=== PATIENT | female | born 1995 | race Caucasian/White ===

== ENCOUNTER 2018-11-12 02:58 | Inpatient (IN) | payer MEDICAID ==
[2018-11-12 04:12] LABS: ABSOLUTE BASOPHILS # (AUTO) 0.1 10^3/uL (0.0-0.2); ABSOLUTE EOSINOPHILS # (AUTO) 0.2 10^3/uL (0.0-0.6); ABSOLUTE LYMPHOCYTES (AUTO) 2.8 10^3/uL (0.5-4.7); ABSOLUTE MONOCYTES (AUTO) 0.7 10^3/uL (0.1-1.4); ABSOLUTE NEUT (AUTO) 10.6 10^3/uL (1.7-8.2); BASOPHILS % (AUTO) 0.4 % (0-2); EOSINOPHILS % (AUTO) 1.1 % (0-6); HEMATOCRIT 35.4 % (36.0-47.0); HEMOGLOBIN 11.7 g/dL (12.0-15.5); LYMPHOCYTES % (AUTO) 19.8 % (13-45); MEAN CORPUSCULAR HEMOGLOBIN 26.5 pg (27.0-33.4); MEAN CORPUSCULAR VOLUME 80 fl (80-97); MONOCYTES % (AUTO) 4.9 % (3-13); PLATELET COUNT 408 10^3/uL (150-450); RED BLOOD COUNT 4.41 10^6/uL (3.72-5.28); RED CELL DISTRIBUTION WIDTH 18.3 % (11.5-14.0); SEGMENTED NEUTROPHILS % (AUTO) 73.8 % (42-78); TOTAL CELLS COUNTED % (AUTO) 100 %; WHITE BLOOD COUNT 14.4 10^3/uL (4.0-10.5)
[2018-11-12] MEDS ORDERED: ACETAMINOPHEN 325 MG TABLET ONE (04:38)
[2018-11-12] MEDS ORDERED: PROMETHAZINE HCL INJ 25 MG/1 ML VIAL ONE ×2 (04:38→05:06)
[2018-11-12 06:13] LABS: ALANINE AMINOTRANSFERASE 15 U/L (9-52); ALBUMIN 3.9 g/dL (3.5-5.0); ALKALINE PHOSPHATASE 69 U/L (38-126); ANION GAP 8 (5-19); ASPARTATE AMINO TRANSFERASE 59 U/L (14-36); BILIRUBIN,DIRECT 0.3 mg/dL (0.0-0.4); BILIRUBIN,TOTAL 0.3 mg/dL (0.2-1.3); BLOOD UREA NITROGEN 26 mg/dL (7-20); CALCIUM 9.4 mg/dL (8.4-10.2); CARBON DIOXIDE 28 mmol/L (22-30); CHLORIDE 103 mmol/L (98-107); GLUCOSE 110 mg/dL (75-110); POTASSIUM 4.3 mmol/L (3.6-5.0); SODIUM 138.5 mmol/L (137-145); TOTAL PROTEIN 6.4 g/dL (6.3-8.2)
[2018-11-12 06:23] LABS: AMORPHOUS SEDIMENT,URINE TRACE /HPF; APPEARANCE,URINE CLOUDY; BILIRUBIN,URINE NEGATIVE (NEGATIVE); COLOR,URINE YELLOW; GLUCOSE, URINE NEGATIVE (NEGATIVE); KETONES,URINE NEGATIVE (NEGATIVE); LEUKOCYTE ESTERASE,URINE NEGATIVE (NEGATIVE); NITRITE,URINE NEGATIVE (NEGATIVE); PROTEIN,URINE NEGATIVE (NEGATIVE); URINE SPECIFIC GRAVITY 1.023; UROBILINOGEN,URINE NEGATIVE mg/dL (<2.0)
--- NOTE | 2018-11-12 06:41 | ER Document Report ---
ED General - General Chief Complaint: Abdominal Pain Stated Complaint: ABDOMINAL PAIN Time Seen by Provider: 11/12/18 03:57 Primary Care Provider: BERNARD JAMES MD [Primary Care Provider] - Follow up as needed Notes: Patient is a 23-year-old female who presents to the emergency department with a chief complaint of abdominal pain. She states that her abdominal pain is primarily in her mid upper abdomen. Her pain started 2 hours prior to arrival to the emergency department. She had tried multiple positions to get comfortable, but anyway she laid, she could not get comfortable. she describes her pain as a sharp, kicking pain. She does have a history of chronic pancreatitis, pacemaker placement, Guillain-Stout, cholecystitis. She was diagnosed with Guillain-Stout a about 8-9 months ago and was at [facility] for management. She denies any diarrhea or vomiting, but does complain of some nausea. She had a bowel movement today, which was normal. TRAVEL OUTSIDE OF THE [place] IN LAST 30 DAYS: No - Related Data Allergies/Adverse Reactions: Penicillins Allergy (Verified 11/12/18 03:29) Sulfa (Sulfonamide Antibiotics) Allergy (Verified 11/12/18 03:29) morphine Adverse Reaction (Verified 11/12/18 03:29) Past Medical History - Social History Smoking Status: Never Smoker Chew tobacco use (# tins/day): No Frequency of alcohol use: None Drug Abuse: None Family History: Reviewed & Not Pertinent Patient has suicidal ideation: No Patient has homicidal ideation: No Renal/ Medical History: Denies: Hx Peritoneal Dialysis Psychiatric Medical History: Reports: Hx Bipolar Disorder Past Surgical History: Reports: Hx Appendectomy, Hx Cholecystectomy Review of Systems - Review of Systems Notes: REVIEW OF SYSTEMS: CONSTITUTIONAL : Denies recent illness. Denies recent unintentional weight loss. Denies fever, chills, or sweats. EENT: Denies eye, ear, throat, or mouth pain, discharge, or symptoms. Denies nasal or sinus congestion. CARDIOVASCULAR: Denies chest pain. RESPIRATORY: Denies shortness of breath, cough, congestion, difficulty clovis athing, or wheezing. GASTROINTESTINAL: See HPI GENITOURINARY: Denies difficulty urinating, burning, blood in urine, urgency or frequency. MUSCULOSKELETAL: Denies neck and back pain. Denies joint pain or swelling. SKIN: Denies rash, itchiness, or lesions HEMATOLOGIC : Denies easy bruising or bleeding. LYMPHATIC: Denies swollen, painful, enlarged glands. NEUROLOGICAL: Denies no numbness or tingling denies weakness. Denies headache. Denies altered mental status. Denies alteration in speech. PSYCHIATRIC: Denies stress, anxiety, alteration in sleep patterns, or depression. All other systems reviewed and negative. Physical Exam - Vital signs Vitals: Temp Pulse Resp BP Pulse Ox 97.9 F 97 19 93/47 L 95 11/12/18 02:59 11/12/18 02:59 11/12/18 02:59 11/12/18 02:59 11/12/18 02:59 - Notes Notes: PHYSICAL EXAMINATION: GENERAL: Appears well, healthy, well-nourished, no acute distress. HEAD: Normocephalic, atraumatic. EYES: PERRL, conjunctiva normal, all extraocular movements intact, sclera nonicteric ENT: Moist mucous membranes. NECK: Supple, no noticeable swelling, redness, rash. Normal range of motion. LUNGS: Equal breath sounds bilaterally and clear to auscultation. No wheezes rales or rhonchi. CARDIOVASCULAR: S1-S2, regular rate, regular rhythm. Radial pulses 2+, normal. ABDOMEN: Normoactive bowel sounds. Soft, tender mid upper abdomen, no guarding, no rebound tenderness, and no masses palpated. EXTREMITIES: Flaccid. NEUROLOGICAL: Flaccid extremities due to Guyon Stout PSYCH: Normal mood, normal affect. SKIN: Warm, diaphoretic. No rash, lesions, ulcerations noted. Normal skin turgor. Course - Re-evaluation Re-evalutation: 11/12/18 04:20 Since the patient has a history of chronic pancreatitis, and she has pain in her epigastric area, a lipase level will be drawn. She also had basic labs done. 11/12/18 06:15 The patient's lipase level is greater than 5000. I asked the patient if she knew what her normal lipase level was, but she could not recall. Unfortunately there are no previous labs from this hospital. Patient stated, "the last time I was admitted to [facility], my lipase level was greater than 5000." 11/12/18 07:[address] of the abdomen is consistent with her lipase level. I will call the hospitalist service to have her admitted for acute pancreatitis. 11/12/18 07:[address] Munoz in regards to the patient's case, he states he will see the patient. - Vital Signs Vital signs: Temp Pulse Resp BP Pulse Ox 98.2 F 97 17 99/74 L 96 11/12/18 06:51 11/12/18 02:59 11/12/18 07:06 11/12/18 07:06 11/12/18 07:06 - Laboratory Result Diagrams: 11/12/18 03:35 11/12/18 03:35 Laboratory results interpreted by me: 11/12/18 11/12/18 03:35 03:35 WBC 14.4 H Hgb 11.7 L Hct 35.4 L MCH 26.5 L RDW 18.3 H Absolute Neutrophils 10.6 H BUN 26 H AST 59 H Lipase 5712.0 H Discharge - Discharge Clinical Impression: Pancreatitis Qualifiers: Chronicity: acute Pancreatitis type: unspecified pancreatitis type Acute pancreatitis complication: unspecified Qualified Code(s): K85.90 - Acute pancreatitis without necrosis or infection, unspecified Condition: Fair Disposition: ADMITTED INPATIENT Admitting Provider: Hospitalist Unit Admitted: Medical Floor Referrals: BERNARD JAMES MD [Primary Care Provider] - Follow up as needed
[2018-11-12] MEDS ORDERED: NORMAL SALINE 1000 ML 1,000 ML IV ONE (06:45)
[2018-11-12] MEDS ORDERED: KETOROLAC TROMETHAMINE INJ/PF 30 MG/1 ML SDV IV ONE (06:56)
--- NOTE | 2018-11-12 07:38 | RADIOLOGY REPORT (SQ) ---
EXAM: CT abdomen pelvis with IV contrast CLINICAL DATA: 23-year-old female with abdominal pain and history of gallbladder surgery and chronic pancreatitis. TECHNICAL DATA: Axial CT imaging of the abdomen and pelvis was performed following the administration of intravenous contrast.. Sagittal and coronal reconstructed images were then performed. The CT study is performed according to ALARA (as low as reasonably achievable) or ALARA/IMAGE GENTLY, with automatic adjustment of mA and/or kV according to patient size. Performed on: 11/12/2018 at 6:25 AM. Comparison: None FINDINGS: Lung bases: The lung bases are clear. There is minimal bibasilar atelectasis and/or fibrosis. Liver: The liver is mildly enlarged and measures 19 cm in craniocaudal dimension. No focal hepatic abnormalities are identified. Liver attenuation is within normal limits. Spleen:The spleen is normal is size, configuration and attenuation. Gallbladder and bile duct: The gallbladder is surgically absent. There is no biliary ductal dilatation. Pancreas: The pancreas is grossly normal in size and configuration. There is mild diffuse peripancreatic inflammation most consistent with acute pancreatitis. Adrenal Glands:The adrenal glands are normal in size and configuration. Kidneys:The kidneys are normal in size and configuration. There is no evidence of hydronephrosis. There is no evidence of nephrolithiasis. No definite solid or cystic renal mass lesions are identified. Stomach:The stomach is grossly normal. There is no definite hiatal hernia. Bowel:The bowel gas pattern is non specific and non obstructive. There is moderate fecal residue scattered throughout the colon. Appendix: The appendix is not clearly visualized and may be surgically absent. Free air:There is no evidence of free air. Free fluid: There is no evidence of free fluid. Vasculature: The aorta is normal in caliber and contour. The inferior vena cava is grossly unremarkable. Lymphadenopathy: No pathologic lymphadenopathy is identified. Bladder: The bladder is well distended and smooth in contour. Reproductive: The uterus is grossly within normal limits. Bones: No acute osseous abnormalities are identified. Soft tissues: No focal soft tissue abnormalities are identified. IMPRESSION: 1. Mild diffuse peripancreatic inflammation most consistent with acute pancreatitis. 2. Remote cholecystectomy and probable appendectomy. 3. Mild hepatomegaly. 4. Bibasilar dependent atelectasis. 5. There is moderate fecal residue scattered throughout the colon.
[2018-11-12] MEDS ORDERED: DEXTROSE 50%-WATER 25 GM/50 ML DISP.SYRIN IV PRN ×2 (10:58)
[2018-11-12] MEDS ORDERED: GLUCAGON,HUMAN RECOMB 1 MG INJ SUBCUT PRN (10:58)
[2018-11-12] MEDS ORDERED: DEXTROSE 40% GEL 15 GM TUBE PO PRN ×2 (10:58)
[2018-11-12] MEDS ORDERED: NORMAL SALINE 1000 ML 1,000 ML IV PRN (10:58)
[2018-11-12] MEDS ORDERED: PROMETHAZINE HCL INJ 25 MG/1 ML VIAL IV PRN ×2 (10:58→13:30)
[2018-11-12] MEDS ORDERED: ACETAMINOPHEN 325 MG TABLET PO PRN (10:58)
[2018-11-12] MEDS ORDERED: (PENDING PHARMACY ID) (Loperamide Hcl [Loperamide] 2 MG) PO PRN (11:08)
[2018-11-12] MEDS ORDERED: CAMPHOR TOP PRN (11:08)
[2018-11-12] MEDS ORDERED: IPRATROPIUM/ALBUTEROL 0.5-2.5 MG/3 ML AMPUL NEB PRN (11:08)
[2018-11-12] MEDS ORDERED: MENTHOL TOP PRN (11:08)
[2018-11-12] MEDS ORDERED: SENNOSIDES 8.6 MG PO PRN (11:08)
[2018-11-12] MEDS ORDERED: HYDROXYZINE HCL 2 MG/ML SYRUP 60 ML PO PRN (11:08)
[2018-11-12] MEDS ORDERED: OXYCODONE HCL IR 5 MG TABLET PO PRN (11:08)
[2018-11-12] MEDS ORDERED: CALCIUM CARBONATE 500 MG TAB.CHEW PO PRN (11:08)
[2018-11-12] MEDS ORDERED: POLYETHYLENE GLYCOL 3350 POWDER 17 GM/1 PACKET PO PRN (11:08)
[2018-11-12] MEDS ORDERED: LOPERAMIDE HCL 2 MG CAPSULE PO PRN (11:17)
[2018-11-12] MEDS ORDERED: SENNOSIDES/DOCUSATE 8.6-50 MG 1 EACH TABLET PO PRN (12:06)
[2018-11-12] MEDS ORDERED: HYDROXYZINE PAMOATE 25 MG CAPSULE PO PRN (12:54)
--- NOTE | 2018-11-12 13:03 | PDOC H&P ---
History of Present Illness Admission Date/PCP: 11/12/18 09:54 BERNARD JAMES MD Patient complains of: Abdominal pain History of Present Illness: IVONNE OROPEZA is a 23 year old female who had an episode of pancreatitis approximately 9 months ago. Subsequently she underwent cholecystectomy. 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 She is a resident at [facility]. She began to notice increased discomfort. She actually did not experience nausea, vomiting or diarrhea. The pain was sharp and localized in the epigastric area. In the past she will occasionally use ibuprofen or oxycodone for pain relief. The use of the ibuprofen is limited and so the likelihood of gastritis is small. Regardless, her lipase was greater than 5000. The patient will be admitted to the hospitalist service. She will b n.p.o. except sips of water with her medications. Aggressive IV fluids will also be administered. The CT scan did not reveal any marked abnormalities such as a phlegmon. I will defer surgical consult for now. Past Medical History Cardiac Medical History: Reports: None Pulmonary Medical History: Reports: Respiratory Failure - With Raymondkellen Stout. Currently resolved. EENT Medical History: Reports: None Neurological Medical History: Reports: Other - Raymondyon Stout Endocrine Medical History: Reports: Other - Pancreatitis Renal/ Medical History: Reports: None Malignancy Medical History: Reports: None GI Medical History: Reports: Other - Cholecystitis and pancreatitis Musculoskeltal Medical History: Reports: Other - Significant weakness legs more than arms secondary to neuromuscular disease Skin Medical History: Reports: None Psychiatric Medical History: Reports: Bipolar Disorder Traumatic Medical History: Reports: None Hematology: Reports: Anemia Infectious Medical History: Reports: None Past Surgical History Past Surgical History: Reports: Appendectomy, Cholecystectomy Social History Information Source: Patient Lives with: [facility] Smoking Status: Never Smoker Frequency of Alcohol Use: None Hx Recreational Drug Use: No Drugs: None Hx Prescription Drug Abuse: No Past Social History Note: Single without children - Advance Directive Resuscitation Status: Full Code Surrogate healthcare decision maker:: No healthcare proxy on file however she did designate her mother to make decisions. Family History Family History: CAD Parental Family History Reviewed: Yes Children Family History Reviewed: NA Sibling(s) Family History Reviewed.: Yes Medication/Allergy Home Medications: Acidophilus/Bifido Longum [Lactobacillus Capsule] 1 cap PO BID 11/12/18 Albuterol Sulfate [Ventolin 0.083% Neb 2.5 mg/3 mL Ampul] 1 vial NEB Q4HP PRN 11/12/18 Aripiprazole [Abilify 5 mg Tablet] 5 mg PO DAILY 11/12/18 Aspirin [Aspirin 325 mg Tablet] 325 mg PO DAILY 11/12/18 Buspirone HCl [Buspar 10 mg Tablet] 20 mg PO TID 11/12/18 Calcium Carbonate [Tums Chewable 500 mg Tab.chew] 1,000 mg PO Q8HP PRN 11/12/18 Chlorhexidine Gluconate [Peridex] 15 ml PO BID 11/12/18 Dicyclomine HCl [Bentyl 10 mg Capsule] 10 mg PO TID 11/12/18 Dronabinol [Marinol 2.5 mg Capsule] 2.5 mg PO BID 11/12/18 Gabapentin [Neurontin 300 mg Capsule] 300 mg PO Q8 11/12/18 Hydroxyzine HCl [Atarax 2 mg/ml Syrup] 25 mg PO Q8HP PRN 11/12/18 Ipratropium/Albuterol Sulfate [Duoneb 3 ml Ampul] 1 vial NEB Q4HP PRN 11/12/18 Lansoprazole [Prevacid 30 mg Odt Tablet] 30 mg PO Q12A 11/12/18 Lidocaine [Lidoderm 5% (700 mg) Transdermal Patch] 2 patch TOP DAILY 11/12/18 Loperamide HCl [Loperamide] 2 mg PO Q8HP PRN 11/12/18 Menthol/Camphor [Sarna Anti-Itch Lotion] 1 applic TOP BIDP PRN 11/12/18 Multivitamin [Multiple Vitamins] 1 tab PO DAILY 11/12/18 Oxycodone HCl [Oxy-Ir 5 mg Tablet] 5 mg PO Q12HP PRN 11/12/18 Polyethylene Glycol 3350 [Miralax Powder 17 gm/Packet] 1 packet PO DAILYP PRN 11/12/18 Sennosides 8.6 mg PO HSP PRN 11/12/18 Sertraline HCl [Zoloft] 100 mg PO DAILY 11/12/18 Temazepam [Restoril 7.5 mg Capsule] 7.5 mg PO QHS 11/12/18 Vancomycin HCl 125 mg PO QID 11/12/18 Allergies/Adverse Reactions: Penicillins Allergy (Verified 11/12/18 09:48) Sulfa (Sulfonamide Antibiotics) Allergy (Verified 11/12/18 09:48) morphine Adverse Reaction (Verified 11/12/18 09:48) Review of Systems Constitutional: PRESENT: as per HPI Eyes: ABSENT: visual disturbances Ears: ABSENT: hearing changes Nose, Mouth, and Throat: ABSENT: mouth pain, sore throat Cardiovascular: ABSENT: chest pain, edema, palpitations Respiratory: ABSENT: cough, dyspnea Gastrointestinal: PRESENT: abdominal pain. ABSENT: diarrhea, nausea, vomiting Genitourinary: ABSENT: dysuria, hematuria Musculoskeletal: PRESENT: muscle weakness, other - Contractures bilateral hands. Frequent muscle spasms. Integumentary: ABSENT: lesions, rash Neurological: PRESENT: weakness. ABSENT: numbness Psychiatric: PRESENT: depression Endocrine: ABSENT: polydipsia, polyuria Hematologic/Lymphatic: ABSENT: easy bruising Physical Exam Vital Signs: Temp Pulse Resp BP Pulse Ox 98.2 F 97 15 97/75 L 94 11/12/18 06:51 11/12/18 02:59 11/12/18 10:46 11/12/18 10:30 11/12/18 10:46 Intake & Output 11/11/18 11/12/18 11/13/18 06:59 06:59 06:59 Intake Total 1000 Balance 1000 Weight 83.3 kg General appearance: PRESENT: cooperative, mild distress, morbidly obese - BMI 37.1, well-developed Head exam: PRESENT: normocephalic Eye exam: PRESENT: conjunctiva pink, EOMI. ABSENT: scleral icterus Ear exam: PRESENT: normal external ear exam Mouth exam: PRESENT: moist, tongue midline Neck exam: ABSENT: carotid bruit, lymphadenopathy Respiratory exam: PRESENT: clear to auscultation suzy, decreased breath sounds, other - Decreased inspiratory phase. ABSENT: accessory muscle use, rales, stridor, wheezes Cardiovascular exam: PRESENT: RRR, +S1, +S2 GI/Abdominal exam: PRESENT: diminished bowel sounds, soft, tenderness - Diffuse mild tenderness in the suprapubic area. Marked focal tenderness in the epigastrium.. ABSENT: guarding Rectal exam: PRESENT: deferred Extremities exam: ABSENT: pedal edema Musculoskeletal exam: PRESENT: other - Profound weakness. Unable to dorsiflex/plantarflex either foot. Unable to raise legs off of the bed today. Some purposeful movement with upper extremities. Contractures in both hands extremely limits functionality. Neurological exam: PRESENT: alert, awake, oriented to person, oriented to place, oriented to time, oriented to situation, CN II-XII grossly intact Psychiatric exam: PRESENT: flat affect. ABSENT: agitated, anxious Focused psych exam: ABSENT: restlessness Skin exam: PRESENT: dry, warm. ABSENT: rash Results Laboratory Results: 11/12/18 03:35 11/12/18 03:35 11/12/18 11/12/18 11/12/18 03:35 03:35 05:00 WBC 14.4 H RBC 4.41 Hgb 11.7 L Hct 35.4 L MCV 80 MCH 26.5 L MCHC 33.0 RDW 18.3 H Plt Count 408 Seg Neutrophils % 73.8 Lymphocytes % 19.8 Monocytes % 4.9 Eosinophils % 1.1 Basophils % 0.4 Absolute Neutrophils 10.6 H Absolute Lymphocytes 2.8 Absolute Monocytes 0.7 Absolute Eosinophils 0.2 Absolute Basophils 0.1 Sodium 138.5 Potassium 4.3 Chloride 103 Carbon Dioxide 28 Anion Gap 8 BUN 26 H Creatinine 0.57 Est GFR ( Amer) > 60 Est GFR (Non-Af Amer) > 60 Glucose 110 Calcium 9.4 Total Bilirubin 0.3 AST 59 H ALT 15 Alkaline Phosphatase 69 Total Protein 6.4 Albumin 3.9 Lipase 5712.0 H Urine Color YELLOW Urine Appearance CLOUDY Urine pH 8.0 Ur Specific [place] 1.023 Urine Protein NEGATIVE Urine Glucose (UA) NEGATIVE Urine Ketones NEGATIVE Urine Blood NEGATIVE Urine Nitrite NEGATIVE Ur Leukocyte Esterase NEGATIVE Urine WBC (Auto) 0 Urine RBC (Auto) 1 Impressions: Abdomen/Pelvis CT 11/12/18 06:10 IMPRESSION: 1. Mild diffuse peripancreatic inflammation most consistent with acute pancreatitis. 2. Remote cholecystectomy and probable appendectomy. 3. Mild hepatomegaly. 4. Bibasilar dependent atelectasis. 5. There is moderate fecal residue scattered throughout the colon. Assessment & Plan - Diagnosis (1) Pancreatitis Qualifiers: Chronicity: acute Pancreatitis type: unspecified pancreatitis type Acute pancreatitis complication: unspecified Qualified Code(s): K85.90 - Acute pancreatitis without necrosis or infection, unspecified Is this a current diagnosis for this admission?: Yes Plan: The patient's lipase was 5712. CT scan did not reveal any biliary ductal dilat ation. She is status post cholecystectomy. I have asked pharmacy to review her medications as the pancreatitis could be related as an adverse effect. We may need to change medications. She will be n.p.o. except medications. Aggressive IV hydration. Continue to monitor laboratory studies. No surgical consult as yet. The CT scan did not reveal marked pancreatic pathology. (2) Abdominal pain, acute, epigastric Is this a current diagnosis for this admission?: Yes Plan: Analgesia available if needed. Proton pump inhibitor started. (3) Guillain Stout syndrome Is this a current diagnosis for this admission?: Yes Plan: Previous physical therapy to see the patient. She would benefit from range of motion and program to prevent further contractures of her hands. (4) Nausea & vomiting Qualifiers: Vomiting type: unspecified Vomiting Intractability: non-intractable Qu alified Code(s): R11.2 - Nausea with vomiting, unspecified Is this a current diagnosis for this admission?: Yes Plan: Antiemetics available. Aggressive IV fluids to replace volume. Antiemetics available. (5) Anemia Qualifiers: Anemia type: unspecified type Qualified Code(s): D64.9 - Anemia, unspecified Is this a current diagnosis for this admission?: Yes Plan: With her low MCV this may very well be iron deficiency versus anemia of chronic disease. Iron studies have been ordered. - Time Time Spent: 50 to 70 Minutes Medications reviewed and adjusted accordingly: Yes Anticipated discharge: SNF - Back to [facility] - Inpatient Certification Based on my medical assessment, after consideration of the patient's comorbidities, presenting symptoms, or acuity I expect that the services needed warrant INPATIENT care.: Yes I certify that my determination is in accordance with my understanding of Medicare's requirements for reasonable and necessary INPATIENT services [42 CFR 412.3e].: Yes Medical Necessity: Need Close Monitoring Due to Risk of Patient Decompensation, Need For IV Fluids, Need for Pain Control, Risk of Complication if Not Cared For in Hospital Post Hospital Care: D/C Java Portal Developer Documentation
[2018-11-12 13:19] LABS: ABSOLUTE RETICS # 0.079 10^6/uL (0.028-0.122); RETICULOCYTE COUNT (AUTO) 1.79 % (0.66-2.85)
[2018-11-12 13:49] LABS: IRON(TIBC) 25.5 ug/dL (37-170)
[2018-11-12] MEDS ORDERED: BUSPIRONE HCL 10 MG TABLET PO SCH (14:00)
[2018-11-12] MEDS ORDERED: DICYCLOMINE HCL 10 MG CAPSULE PO SCH (14:00)
[2018-11-12] MEDS: HEPARIN SOD (PORCINE) 5,000 UNIT/ML 1 ML SYRINGE SUBCUT SCH ×2 (14:30→22:00)
[2018-11-12] MEDS: GABAPENTIN 300 MG CAPSULE PO SCH ×2 (14:31→22:02)
[2018-11-12] MEDS: BUSPIRONE HCL 10 MG TABLET PO SCH ×2 (14:32→21:57)
[2018-11-12] MEDS: DICYCLOMINE HCL 10 MG CAPSULE PO SCH (17:23)
[2018-11-12] MEDS ORDERED: BIFIDO LONGUM PO SCH (18:00)
[2018-11-12] MEDS ORDERED: ACIDOPHILUS PO SCH (18:00)
[2018-11-12] MEDS: LACTOBACILLUS ACIDOPHILUS 250 MG TAB PO SCH (18:21)
[2018-11-12] MEDS: LANSOPRAZOLE 30 MG TAB.RAP.DR PO SCH (18:21)
[2018-11-12] MEDS: CHLORHEXIDINE GLUCONATE 0.12% ORAL RINSE 15 ML UDC PO SCH (18:21)
[2018-11-12] MEDS: DRONABINOL 2.5 MG CAPSULE PO SCH (20:16)
[2018-11-12] MEDS: TEMAZEPAM 7.5 MG CAPSULE PO SCH (21:57)
[2018-11-12] MEDS: PHARMACY COMMUNICATION ORDER MC SCH (21:58)
[2018-11-13 04:56] LABS: ABSOLUTE EOSINOPHILS # (AUTO) 0.3 10^3/uL (0.0-0.6); ABSOLUTE LYMPHOCYTES (AUTO) 2.9 10^3/uL (0.5-4.7); ABSOLUTE MONOCYTES (AUTO) 0.4 10^3/uL (0.1-1.4); ABSOLUTE NEUT (AUTO) 4.3 10^3/uL (1.7-8.2); BASOPHILS % (AUTO) 0.5 % (0-2); EOSINOPHILS % (AUTO) 3.8 % (0-6); HEMATOCRIT 36.8 % (36.0-47.0); HEMOGLOBIN 11.8 g/dL (12.0-15.5); LYMPHOCYTES % (AUTO) 36.5 % (13-45); MEAN CORPUSCULAR HEMOGLOBIN 26.1 pg (27.0-33.4); MEAN CORPUSCULAR HGB CONC 32.1 g/dL (32.0-36.0); MEAN CORPUSCULAR VOLUME 81 fl (80-97); MONOCYTES % (AUTO) 5.6 % (3-13); PLATELET COUNT 320 10^3/uL (150-450); RED BLOOD COUNT 4.52 10^6/uL (3.72-5.28); RED CELL DISTRIBUTION WIDTH 18.2 % (11.5-14.0); SEGMENTED NEUTROPHILS % (AUTO) 53.6 % (42-78); TOTAL CELLS COUNTED % (AUTO) 100 %
[2018-11-13] MEDS: HEPARIN SOD (PORCINE) 5,000 UNIT/ML 1 ML SYRINGE SUBCUT SCH ×3 (05:04→22:44)
[2018-11-13] MEDS: LANSOPRAZOLE 30 MG TAB.RAP.DR PO SCH ×2 (05:11→17:15)
[2018-11-13] MEDS: GABAPENTIN 300 MG CAPSULE PO SCH ×3 (05:11→22:44)
[2018-11-13] MEDS: BUSPIRONE HCL 10 MG TABLET PO SCH ×3 (05:11→22:44)
[2018-11-13 05:12] LABS: ANION GAP 10 (5-19); BLOOD UREA NITROGEN 16 mg/dL (7-20); CALCIUM 9.6 mg/dL (8.4-10.2); CARBON DIOXIDE 25 mmol/L (22-30); CHLORIDE 105 mmol/L (98-107); GLUCOSE 75 mg/dL (75-110); LIPASE 391.1 U/L (23-300); POTASSIUM 4.5 mmol/L (3.6-5.0); SODIUM 139.9 mmol/L (137-145)
[2018-11-13] MEDS: NORMAL SALINE 1000 ML 1,000 ML IV PRN ×2 (05:12→13:15)
[2018-11-13] MEDS: SERTRALINE HCL 50 MG TABLET PO SCH (10:21)
[2018-11-13] MEDS: MULTIVITAMIN TABLET PO SCH (10:21)
[2018-11-13] MEDS: CHLORHEXIDINE GLUCONATE 0.12% ORAL RINSE 15 ML UDC PO SCH ×2 (10:21→17:14)
[2018-11-13] MEDS: DRONABINOL 2.5 MG CAPSULE PO SCH ×2 (10:21→17:14)
[2018-11-13] MEDS: ASPIRIN 325 MG TABLET PO SCH (10:22)
[2018-11-13] MEDS: LACTOBACILLUS ACIDOPHILUS 250 MG TAB PO SCH ×2 (10:22→17:14)
[2018-11-13] MEDS: DICYCLOMINE HCL 10 MG CAPSULE PO SCH ×3 (10:31→17:14)
[2018-11-13] MEDS: ARIPIPRAZOLE 5 MG TABLET PO SCH (10:59)
[2018-11-13] MEDS: LIDOCAINE 5% (700 MG) TRANSDERMAL ADH..PATCH TOP SCH (11:00)
--- NOTE | 2018-11-13 22:18 | PDOC PROGRESS REPORT ---
Subjective Progress Note for:: 11/13/18 Subjective:: Patient feels miserable mostly because of her n.p.o. status. Abdominal pain has resolved. Reason For Visit: PANCREATITIS,GUILLIAN BARRE Physical Exam Vital Signs: Temp Pulse Resp BP Pulse Ox 97.7 F 111 H 18 104/49 L 83 L 11/13/18 19:35 11/13/18 19:35 11/13/18 19:35 11/13/18 19:35 11/13/18 19:35 Intake & Output 11/12/18 11/13/18 11/14/18 06:59 06:59 06:59 Intake Total 1000 1240 Balance 1000 1240 Weight 83.3 kg 85.7 kg General appearance: PRESENT: no acute distress, cooperative Respiratory exam: PRESENT: clear to auscultation suzy. ABSENT: rales, rhonchi, wheezes Cardiovascular exam: PRESENT: RRR, +S1, +S2 GI/Abdominal exam: PRESENT: normal bowel sounds, soft. ABSENT: tenderness Musculoskeletal exam: PRESENT: other - Bilateral mild hand contractures. Neurological exam: PRESENT: alert, awake, oriented to person, oriented to place, oriented to situation Psychiatric exam: PRESENT: flat affect Results Laboratory Results: 11/13/18 04:12 11/13/18 04:12 11/13/18 11/13/18 04:12 04:12 WBC 8.0 RBC 4.52 Hgb 11.8 L Hct 36.8 MCV 81 MCH 26.1 L MCHC 32.1 RDW 18.2 H Plt Count 320 Seg Neutrophils % 53.6 Lymphocytes % 36.5 Monocytes % 5.6 Eosinophils % 3.8 Basophils % 0.5 Absolute Neutrophils 4.3 Absolute Lymphocytes 2.9 Absolute Monocytes 0.4 Absolute Eosinophils 0.3 Absolute Basophils 0.0 Sodium 139.9 Potassium 4.5 Chloride 105 Carbon Dioxide 25 Anion Gap 10 BUN 16 Creatinine 0.43 L Est GFR ( Amer) > 60 Est GFR (Non-Af Amer) > 60 Glucose 75 Calcium 9.6 Lipase 391.1 H Impressions: Abdomen/Pelvis CT 11/12/18 06:10 IMPRESSION: 1. Mild diffuse peripancreatic inflammation most consistent with acute pancreatitis. 2. Remote cholecystectomy and probable appendectomy. 3. Mild hepatomegaly. 4. Bibasilar dependent atelectasis. 5. There is moderate fecal residue scattered throughout the colon. Assessment & Plan - Diagnosis (1) Pancreatitis Qualifiers: Chronicity: acute Pancreatitis type: unspecified pancreatitis type Acute pancreatitis complication: unspecified Qualified Code(s): K85.90 - Acute pancreatitis without necrosis or infection, unspecified Is this a current diagnosis for this admission?: Yes Plan: The lipase went from 5000 down to 300. This seems like an extremely unlikely change in such a short time. Regardless, the patient feels better and so I will initiate a diet. If she does well consider discharge. (2) Abdominal pain, acute, epigastric Is this a current diagnosis for this admission?: Yes Plan: Resolved (3) Guillain Stout syndrome Is this a current diagnosis for this admission?: Yes Plan: The patient did have therapy for range of motion exercises today (4) Nausea & vomiting Qualifiers: Vomiting type: unspecified Vomiting Intractability: non-intractable Qualified Code(s): R11.2 - Nausea with vomiting, unspecified Is this a current diagnosis for this admission?: Yes (5) Anemia Qualifiers: Anemia type: iron deficiency Iron deficiency anemia type: unspecified iron deficiency Qualified Code(s): D50.9 - Iron deficiency anemia, unspecified Is this a current diagnosis for this admission?: Yes Plan: Anemia workup revealed low serum iron. I will review with the patient tomorrow. Before starting oral iron supplementation I would like her pancreatitis to have resolved. - Time Time Spent with patient: 15-24 minutes Medications reviewed and adjusted accordingly: Yes Anticipated discharge: SNF
[2018-11-13] MEDS: TEMAZEPAM 7.5 MG CAPSULE PO SCH (22:44)
[2018-11-13] MEDS: PHARMACY COMMUNICATION ORDER MC SCH (23:52)
[2018-11-14] MEDS: NORMAL SALINE 1000 ML 1,000 ML IV PRN (03:40)
[2018-11-14 04:29] LABS: HEMATOCRIT 35.1 % (36.0-47.0); HEMOGLOBIN 11.2 g/dL (12.0-15.5); MEAN CORPUSCULAR HEMOGLOBIN 25.9 pg (27.0-33.4); MEAN CORPUSCULAR HGB CONC 31.9 g/dL (32.0-36.0); MEAN CORPUSCULAR VOLUME 81 fl (80-97); PLATELET COUNT 263 10^3/uL (150-450); RED BLOOD COUNT 4.32 10^6/uL (3.72-5.28); WHITE BLOOD COUNT 6.9 10^3/uL (4.0-10.5)
[2018-11-14 04:52] LABS: ANION GAP 9 (5-19); BLOOD UREA NITROGEN 15 mg/dL (7-20); CALCIUM 9.3 mg/dL (8.4-10.2); CARBON DIOXIDE 24 mmol/L (22-30); CHLORIDE 107 mmol/L (98-107); GLUCOSE 77 mg/dL (75-110); LIPASE 119.5 U/L (23-300); POTASSIUM 4.7 mmol/L (3.6-5.0); SODIUM 139.9 mmol/L (137-145)
[2018-11-14] MEDS: HEPARIN SOD (PORCINE) 5,000 UNIT/ML 1 ML SYRINGE SUBCUT SCH ×2 (05:58→13:54)
[2018-11-14] MEDS: GABAPENTIN 300 MG CAPSULE PO SCH ×2 (05:59→13:54)
[2018-11-14] MEDS: BUSPIRONE HCL 10 MG TABLET PO SCH ×2 (05:59→13:54)
[2018-11-14] MEDS: LANSOPRAZOLE 30 MG TAB.RAP.DR PO SCH (06:01)
[2018-11-14] MEDS: DICYCLOMINE HCL 10 MG CAPSULE PO SCH ×3 (08:40→16:51)
[2018-11-14] MEDS: LIDOCAINE 5% (700 MG) TRANSDERMAL ADH..PATCH TOP SCH (09:37)
[2018-11-14] MEDS: CHLORHEXIDINE GLUCONATE 0.12% ORAL RINSE 15 ML UDC PO SCH (09:37)
[2018-11-14] MEDS: ARIPIPRAZOLE 5 MG TABLET PO SCH (09:38)
[2018-11-14] MEDS: MULTIVITAMIN TABLET PO SCH (09:39)
[2018-11-14] MEDS: DRONABINOL 2.5 MG CAPSULE PO SCH (09:39)
[2018-11-14] MEDS: ASPIRIN 325 MG TABLET PO SCH (09:39)
[2018-11-14] MEDS: LACTOBACILLUS ACIDOPHILUS 250 MG TAB PO SCH (09:39)
[2018-11-14] MEDS: SERTRALINE HCL 50 MG TABLET PO SCH (09:40)
--- NOTE | 2018-11-14 11:04 | PDOC TRANSFER SUMMARY ---
General - Admit/Disc Date/PCP Admission Date/Primary Care Provider: 11/12/18 09:54 BERNARD JAMES MD Discharge Date: 11/14/18 - Discharge Diagnosis (1) Pancreatitis Is this a current diagnosis for this admission?: Yes Summary: This has been a recurrent issue for the patient. The surprise was that her serum lipase was greater than 5000 and within 24 hours it had dropped to 300. T angelito she is normal. This is such a precipitous change that it makes the etiology unclear. I would strongly suggest evaluation by a data steward. She is tolerating her regular diet and will return to [facility]. Consider rechecking blood work next week as a routine follow-up. (2) Abdominal pain, acute, epigastric Is this a current diagnosis for this admission?: Yes Summary: Resolved (3) Guillain Stout syndrome Is this a current diagnosis for this admission?: Yes Summary: This is a chronic illness for the patient. While here she did have physical therapy with range of motion exercises. (4) Nausea & vomiting Is this a current diagnosis for this admission?: Yes Summary: Resolved (5) Anemia Is this a current diagnosis for this admission?: Yes Summary: The patient did have low serum iron. Consider an iron supplement if there are no contraindications. If constipation with iron therapy is a significant concern then consider intravenous iron therapy. (6) Obesity (BMI 30-39.9) Is this a current diagnosis for this admission?: Yes Summary: As the patient cannot exercise, weight loss would be through dieting. - Additional Information Resuscitation Status: Full Code Discharge Diet: As Tolerated Home Medications: Acidophilus/Bifido Longum [Lactobacillus Capsule] 1 cap PO BID 11/12/18 Albuterol Sulfate [Ventolin 0.083% Neb 2.5 mg/3 mL Ampul] 1 vial NEB Q4HP PRN 11/12/18 Aripiprazole [Abilify 5 mg Tablet] 5 mg PO DAILY 11/12/18 Aspirin [Aspirin 325 mg Tablet] 325 mg PO DAILY 11/12/18 Buspirone HCl [Buspar 10 mg Tablet] 20 mg PO TID 11/12/18 Calcium Carbonate [Tums Chewable 500 mg Tab.chew] 1,000 mg PO Q8HP PRN 11/12/18 Chlorhexidine Gluconate [Peridex] 15 ml PO BID 11/12/18 Dicyclomine HCl [Bentyl 10 mg Capsule] 10 mg PO TID 11/12/18 Dronabinol [Marinol 2.5 mg Capsule] 2.5 mg PO BID 11/12/18 Gabapentin [Neurontin 300 mg Capsule] 300 mg PO Q8 11/12/18 Hydroxyzine HCl [Atarax 2 mg/ml Syrup] 25 mg PO Q8HP PRN 11/12/18 Ipratropium/Albuterol Sulfate [Duoneb 3 ml Ampul] 1 vial NEB Q4HP PRN 11/12/18 Lansoprazole [Prevacid 30 mg Odt Tablet] 30 mg PO Q12A 11/12/18 Lidocaine [Lidoderm 5% (700 mg) Transdermal Patch] 2 patch TOP DAILY 11/12/18 Loperamide HCl [Loperamide] 2 mg PO Q8HP PRN 11/12/18 Menthol/Camphor [Sarna Anti-Itch Lotion] 1 applic TOP BIDP PRN 11/12/18 Multivitamin [Multiple Vitamins] 1 tab PO DAILY 11/12/18 Oxycodone HCl [Oxy-Ir 5 mg Tablet] 5 mg PO Q12HP PRN 11/12/18 Polyethylene Glycol 3350 [Miralax Powder 17 gm/Packet] 1 packet PO DAILYP PRN 11/12/18 Sennosides 8.6 mg PO HSP PRN 11/12/18 Sertraline HCl [Zoloft] 100 mg PO DAILY 11/12/18 Temazepam [Restoril 7.5 mg Capsule] 7.5 mg PO QHS 11/12/18 Acetaminophen [Tylenol 325 mg Tablet] 325 mg PO Q4HP PRN tablet 11/14/18 History of Present Illness Admission Date/PCP: 11/12/18 09:54 BERNARD JAMES MD Patient complains of: Abdominal pain, nausea and vomiting History of Present Illness: IVONNE OROPEZA is a 23 year old female who had an episode of pancreatitis approximately 9 months ago. Subsequently she underwent cholecystectomy. 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 She began to notice increased discomfort. She actually did not experience nausea, vomiting or diarrhea. The pain was sharp and localized in the epigastric area. In the past she will occasionally use ibuprofen or oxycodone for pain relief. The use of the ibuprofen is limited and so the likelihood of gastritis is small. Regardless, her lipase was greater than 5000. The patient will be admitted to the hospitalist service. She will b n.p.o. except sips of water with her medications. Aggressive IV fluids will also be administered. The CT scan did not reveal any marked abnormalities such as a phlegmon. I will defer surgical consult for now. Hospital Course Hospital Course: The patient had an unremarkable hospital course. She was n.p.o. for the first night. She had a remarkable drop in her lipase by this morning was able to tolerate her diet. In addition her lipase was actually normal today. There are no changes in her medications. She will return to [facility]. Physical Exam Vital Signs: Temp Pulse Resp BP Pulse Ox 97.5 F 90 18 100/52 L 96 11/14/18 07:50 11/14/18 07:50 11/14/18 07:50 11/14/18 07:50 11/14/18 07:50 Intake & Output 11/13/18 11/14/18 11/15/18 06:59 06:59 06:59 Intake Total 1000 2390 Balance 1000 2390 Weight 85.7 kg 88.5 kg Results Laboratory Results: 11/14/18 03:54 11/14/18 03:54 11/14/18 11/14/18 03:54 03:54 WBC 6.9 RBC 4.32 Hgb 11.2 L Hct 35.1 L MCV 81 MCH 25.9 L MCHC 31.9 L RDW 18.0 H Plt Count 263 Sodium 139.9 Potassium 4.7 Chloride 107 Carbon Dioxide 24 Anion Gap 9 BUN 15 Creatinine 0.38 L Est GFR ( Amer) > 60 Est GFR (Non-Af Amer) > 60 Glucose 77 Calcium 9.3 Lipase 119.5 Impressions: Abdomen/Pelvis CT 11/12/18 06:10 IMPRESSION: 1. Mild diffuse peripancreatic inflammation most consistent with acute pancreatitis. 2. Remote cholecystectomy and probable appendectomy. 3. Mild hepatomegaly. 4. Bibasilar dependent atelectasis. 5. There is moderate fecal residue scattered throughout the colon. Transfer Plan - Disposition Transfer Plan: Return to [facility]. - Time Spent with Patient Time spent with patient: Less than 30 Minutes Qualifiers - * PATIENT BEING DISCHARGED WITH ANY OF THE FOLLOWING DIAGNOSIS: No Plan Discharge Plan: Refer to gastroenterology. Consider iron therapy for anemia. Consider repeat blood work next week. Time Spent: Less than 30 Minutes
[2018-11-14 17:06] VITALS: BP 96/55
== END 2018-11-14 17:10 | DRG 438 ==
LOC: ER 02:58 → EH 09:54 → 5 18:53
PROVIDERS: ADMIT Hospitalist; ATTEND Hospitalist
DX: K85.90 Acute pancreatitis without necrosis or infection, unspecified (principal); G82.50 Quadriplegia, unspecified; G61.0 Guillain-Barre syndrome; E66.9 Obesity, unspecified; D50.9 Iron deficiency anemia, unspecified; K86.1 Other chronic pancreatitis; Z90.49 Acquired absence of other specified parts of digestive tract; Z79.82 Long term (current) use of aspirin; Z79.899 Other long term (current) drug therapy; Z88.0 Allergy status to penicillin; Z88.2 Allergy status to sulfonamides; Z88.6 Allergy status to analgesic agent
CPT/HCPCS: 36415; 74177; 80048; 80053; 81001; 82607; 82728; 82746; 83540; 83550; 83690; 85025; 85027; 85045; 96361; 96374; 99285; A9270-GY; J1885; J3490; J7030